=== PATIENT | male | born 1970 | race Caucasian/White ===

== ENCOUNTER 2019-10-31 07:00 | Emergency (ER) | payer OTHER ==
[~2019-10-31] VITALS: Ht 172.7 cm; Wt 79.4 kg
[2019-10-31] MEDS ORDERED: INTESTINEX680 M2 PO (11:28)
== END 2019-10-31 12:02 | disposition home or self-care (01) ==
LOC: ER 07:00 → EDBD 07:12 → ER 12:02
DX: K21.9 Gastro-esophageal reflux disease without esophagitis (principal); R06.02 Shortness of breath; Z03.818 Encounter for observation for suspected exposure to other biological agents ruled out